=== PATIENT | female | born 1965 | race Caucasian/White ===

== ENCOUNTER 2016-08-06 00:55 | Emergency (ER) | payer OTHER ==
[~2016-08-06] VITALS: Ht 149.9 cm; Wt 52.3 kg
[2016-08-06 00:58] VITALS: Ht 149.9 cm; Wt 52.3 kg
[2016-08-06] MEDS ORDERED: ALPRAZOLAM 0.25 MG TAB PO ONE (01:00)
[2016-08-06] MEDS ORDERED: HYDR25CA PO (02:54)
[2016-08-06 02:55] VITALS: BP 96/63; PULSE 67; RESP 16; TEMP 98.4
--- NOTE | 2016-08-06 03:00 | ERD ---
ER Documentation Chief Complaint Date/Time DATE: 08/06/16 TIME: 02:56 Chief Complaint LELE anxiety, had an argument with family HPI This 50-year-old female comes to the emergency room for anxiety after an argument with her family. Paramedics arrived the patient said that she was feeling better now but family agitated the patient and she had anxiety again want to go to the emergency room to have something for. Currently denies chest pain shortness of breath, fever or chills. Stated that she did have some shortness of breath and feeling of chest tightness. States that she is otherwise healthy. ROS All systems reviewed and are negative except as per history of present illness. Medications Home Meds Active Scripts Hydroxyzine Pamoate* (Vistaril*) 25 Mg Capsule, 25 MG PO Q8 for ANXIETY, #10 CAP Prov:MAYANK WOLFF 08/06/16 Allergies Allergies: Coded Allergies: No Known Allergy (Verified , 11/05/13) PMhx/Soc Medical and Surgical Hx: pt denies Surgical Hx History of Surgery: No Anesthesia Reaction: No Hx Neurological Disorder: No Hx Respiratory Disorders: No Hx Cardiac Disorders: No Hx Psychiatric Problems: Yes (ANXIETY) Hx Miscellaneous Medical Probl: Yes (UTI) Hx Alcohol Use: No Hx Substance Use: No Hx Tobacco Use: No Smoking Status: Current every day smoker Physical Exam Vitals Vital Signs Date Time Temp Pulse Resp B/P Pulse Ox O2 Delivery O2 Flow Rate FiO2 08/06/16 00:58 98.0 119 18 137/95 98 Physical Exam Const: [] No distress Head: Atraumatic Eyes: Normal Conjunctiva ENT: Normal External Ears, Nose and Mouth. Neck: Full range of motion..~ No meningismus. Resp: Clear to auscultation bilaterally Cardio: Regular rate and rhythm, no murmurs Skin: No petechiae or rashes Ext: No cyanosis, or edema Neur: Awake and alert and oriented 3, no focal deficits Psych: Appears mildly anxious. Results 24 hrs Current Medications Medications (Trade) Dose Ordered Sig/Nunu Route PRN Reason Start Time Stop Time Status Last Admin Dose Admin Alprazolam (Xanax) 0.5 mg ONCE ONCE PO 08/06/16 01:00 08/06/16 01:01 DC 08/06/16 01:12 Procedures/MDM Anxiety attack. Patient was given a 0.5 mg Xanax on arrival. Patient has family members at the bedside and is calm. States that she feels much better and just wants to go home and sleep in her bed. She has no symptoms currently. Discharging her with Vistaril, 10 tablets for anxiety. Primary care follow- up in 2-3 days EKG interpretation: Normal sinus rhythm rate of 95, normal axis, no ST or T- wave changes concerning for acute ischemia. Normal EKG. Departure Diagnosis: Primary Impression: Anxiety attack Condition: Stable Patient Instructions: Anxiety Reaction Referrals: LIZZIE PATEL (PCP) Additional Instructions: Call your primary care doctor TOMORROW for an appointment during the next 2-3 days.See the doctor sooner or return here if your condition worsens before your appointment time. MAYANK WOLFF DO Aug 06, 2016 02:59
== END 2016-08-06 03:04 | disposition home or self-care (01) ==
LOC: E/R 00:55
DX: F41.9 Anxiety disorder, unspecified (principal); R40.2252 Coma scale, best verbal response, oriented, at arrival to emergency department; R06.02 Shortness of breath; F17.210 Nicotine dependence, cigarettes, uncomplicated; R40.2142 Coma scale, eyes open, spontaneous, at arrival to emergency department; R40.2362 Coma scale, best motor response, obeys commands, at arrival to emergency department
CPT/HCPCS: 93005; Z7502; Z7610

== ENCOUNTER 2018-03-18 14:32 | Emergency (ER) | payer OTHER ==
[~2018-03-18] VITALS: Ht 167.6 cm; Wt 54.2 kg
[~2018-03-18 14:32] MED LIST: HYDR25CA PO
[2018-03-18 14:38] VITALS: Ht 167.6 cm; Wt 54.2 kg
--- NOTE | 2018-03-18 17:35 | ERD ---
ER Documentation Chief Complaint Chief Complaint Complains of left breast pain HPI 52-year-old female presents with complaint of pain in the left breast. States she hit her breast side of the tub on . Denies fevers, chills, nipple discharge. Denies past medical history. Denies allergies. Denies medications. Denies surgeries. Denies alcohol, tobacco, drug use. Up to date on vaccines. ROS All systems reviewed and are negative except as per history of present illness. Medications Home Meds Active Scripts Ibuprofen* (Motrin*) 600 Mg Tab, 600 MG PO Q6 for Pain, #30 TAB Prov:AYANNA CARLISLE 03/18/18 Cephalexin* (Keflex*) 500 Mg Capsule, 500 MG PO QID for mastitis for 7 Days, #28 CAP Prov:AYANNA CARLISLE 03/18/18 Hydroxyzine Pamoate* (Vistaril*) 25 Mg Capsule, 25 MG PO Q8 for ANXIETY, #10 CAP Prov:MAYANK WOLFF DO 08/06/16 Allergies Allergies: Coded Allergies: No Known Allergy (Verified , 03/18/18) PMhx/Soc Medical and Surgical Hx: pt denies Surgical Hx History of Surgery: No Anesthesia Reaction: No Hx Neurological Disorder: No Hx Respiratory Disorders: No Hx Cardiac Disorders: Yes (CHOLESTEROL ) Hx Psychiatric Problems: Yes (ANXIETY) Hx Miscellaneous Medical Probl: Yes (UTI) Hx Alcohol Use: Yes (OOC) Hx Substance Use: No Hx Tobacco Use: Yes Smoking Status: Never smoker FmHx Family History: No diabetes, No coronary disease, No other Physical Exam Vitals Vital Signs Date Temp Pulse Resp B/P (MAP) Pulse Ox O2 O2 Flow FiO2 Time Delivery Rate 03/18/18 98.5 107 20 156/94 98 14:38 (114) Physical Exam Const: No acute distress Resp: Clear to auscultation bilaterally Cardio: Regular rate and rhythm, no murmurs Left Breast: Some erythema noted on the inferior torsion of the left breast w ith possible underlying mass. No discharge or deformities noted. No retractions or lymphatic streaking noted. Neur: Awake and alert Psych: Normal Mood and Affect Result Diagram: 03/18/18 1864 Results 24 hrs Laboratory Tests Test 03/18/18 17:35 03/18/18 17:39 White Blood Count 9.7 10^3/ul Red Blood Count 4.50 10^6/ul Hemoglobin 12.9 g/dl Hematocrit 40.1 % Mean Corpuscular Volume 89.1 fl Mean Corpuscular Hemoglobin 28.7 pg Mean Corpuscular Hemoglobin Concent 32.2 g/dl Red Cell Distribution Width 13.3 % Platelet Count 319 10^3/UL Mean Platelet Volume 9.0 fl Immature Granulocytes % 0.200 % Neutrophils % 56.4 % Lymphocytes % 37.6 % Monocytes % 5.1 % Eosinophils % 0.3 % Basophils % 0.4 % Nucleated Red Blood Cells % 0.0 /100WBC Immature Granulocytes # 0.020 10^3/ul Neutrophils # 5.5 10^3/ul Lymphocytes # 3.7 10^3/ul Monocytes # 0.5 10^3/ul Eosinophils # 0.0 10^3/ul Basophils # 0.0 10^3/ul Nucleated Red Blood Cells # 0.0 10^3/ul POC Beta HCG, Qualitative NEGATIVE Current Medications Medications Dose Sig/Nunu Start Time Status Last (Trade) Ordered Route PRN Stop Time Admin Dose Reason Admin Ketorolac 60 mg ONCE STAT 03/18/18 DC 03/18/18 Tromethamine IM 17:35 18:39 (Toradol) 03/18/18 17:36 1,000 mg ONCE STAT 03/18/18 DC 03/18/18 Acetaminophen PO 17:36 17:40 (Tylenol 03/18/18 17:37 Tab) Procedures/MDM DIAGNOSTIC IMAGING REPORT Patient: GEETA CAMPO : 1965 Age: 52 Sex: F MR #: [id number] DOS: 03/18/18 1731 Ordering MD: AYANNA CARLISLE Location: [facility] Room/Bed: PROCEDURE: Left breast ultrasound CLINICAL INDICATION: Left breast pain and mass TECHNIQUE: Ultrasound of the left breast and axilla was performed. COMPARISON: None available FINDINGS: At 3 o'clock position of the left breast there is 7 x 4 x 6 mm simple cyst. Mildly dilated ducts are seen in the left breast greatest in the subareolar region. No solid mass is seen on ultrasound. No sonographic abnormality seen in the left axilla. IMPRESSION: 7 mm simple cyst at 3 o'clock position of the left breast. Mildly dilated ducts. Recommendation: Clinical management of a palpable mass including the decision whether to biopsy must be based on clinical grounds. If there is a palpable mass, clinical evaluation is recommended to ascertain whether this can be explained by a 7 mm simple cyst at 3 o'clock position of the left breast. Diagnostic mammography is recommended in the evaluation of a palpable mass as well. BIRADS 2 - benign RPTAT: HJES .Isidro Maza MD, MD Date Time Electronically viewed and signed by .Isidro Maza MD, on 03/18/2018 18:48 .S/ CC: AYANNA CARLISLE [phone] MDM: 52-year-old female presents with complaint of pain in the left breast. States she hit her breast side of the tub on . Denies fevers, chills, nipple discharge. Ultrasound was performed, see results above. The results of the ultrasound do not necessarily explain the breast pain so I have suspicion of mastitis and gave patient Rx for Keflex and ibuprofen. Patient given copy of ultrasound report advised to follow-up with her primary care provider for further evaluation of this cyst in her breast. Patient agreed to follow-up. Duane moise discharged with strict ER precautions. Patient advised to follow up with PMD. All questions answered at discharge. Departure Diagnosis: Primary Impression: Breast pain Condition: Stable AYANNA CARLISLE Mar 18, 2018 17:35
[2018-03-18] MEDS ORDERED: ACETAMINOPHEN 500 MG TAB PO STA (17:36)
[2018-03-18] MEDS: KETOROLAC 60 MG INJ IM STA ×3 (17:40→18:39)
[2018-03-18] MEDS ORDERED: IBUP-1542 PO (19:17)
[2018-03-18] MEDS ORDERED: CEPH-443 PO (19:17)
== END 2018-03-18 19:31 | disposition home or self-care (01) ==
LOC: FTE 14:32
DX: N64.4 Mastodynia (principal); Z87.891 Personal history of nicotine dependence
CPT/HCPCS: 76642; 81025; 85025; J1885; Z7610; 96372